=== PATIENT | female | born 1960 | race Caucasian/White ===

== ENCOUNTER 2017-03-02 17:57 | Inpatient (IN) | payer BC ==
[2017-03-02] MEDS ORDERED: METO25TA3 PO (18:50)
[2017-03-02] MEDS ORDERED: LOSA100T3 PO (18:50)
[2017-03-02 20:00] VITALS: BP 102/58; PULSE 80; RESP 22; TEMP 97.6; O2SAT 99
[2017-03-02] MEDS ORDERED: PILL SPLITTER OTHER PRN (20:00)
[2017-03-02] MEDS: D5-NS + KCL 40 MEQ INJ 1,000 ML IV SCH (20:59)
[2017-03-02] MEDS: LEVOFLOXACIN 750 MG PREMIX INJ 150 ML IV SCH (21:00)
[2017-03-02] MEDS: metroNIDAZOLE 500 MG INJ 100 ML IV SCH (21:06)
[2017-03-02] MEDS: MORPHINE SULFATE 4 MG/ML INJ IV PUSH PRN (21:11)
[2017-03-03] VITALS: BP 97/56; PULSE 85; RESP 20; TEMP 98.1; O2SAT 94
[2017-03-03 04:00] VITALS: BP 103/62; PULSE 87; RESP 20; TEMP 98.8; O2SAT 97
[2017-03-03] MEDS: metroNIDAZOLE 500 MG INJ 100 ML IV SCH ×3 (04:55→21:18)
[2017-03-03] MEDS: D5-NS + KCL 40 MEQ INJ 1,000 ML IV SCH ×3 (04:56→21:12)
[2017-03-03 07:18] LABS: AUTOMATED NEUTROPHIL # 11.3 TH/MM3 (1.8-7.7); BASOPHIL % 0.1 % (0.0-2.0); EOSINOPHIL % 0.1 % (0.0-4.0); HEMATOCRIT 34.8 % (35.0-46.0); HEMO FLAGS DIFF FINAL; LYMPHOCYTE # 1.1 TH/MM3 (1.0-4.8); MEAN CELL VOLUME 86.7 FL (80.0-100.0); MEAN CORPUSCULAR HEMOGLOBIN 29.3 PG (27.0-34.0); MEAN CORPUSCULAR HGB CONC 33.8 % (32.0-36.0); MONO % 5.8 % (0.0-8.0); PLATELET COUNT 188 TH/MM3 (150-450); RED BLOOD COUNT 4.02 MIL/MM3 (4.00-5.30); RED CELL DISTRIBUTION WIDTH 13.4 % (11.6-17.2); WHITE BLOOD COUNT 13.1 TH/MM3 (4.0-11.0)
[2017-03-03 07:26] LABS: BICARBONATE 24.9 MEQ/L (21.0-32.0); POTASSIUM 3.7 MEQ/L (3.5-5.1)
[2017-03-03 08:00] VITALS: BP 110/65; PULSE 78; RESP 19; TEMP 97.8; O2SAT 96
[2017-03-03] MEDS: HYDROCHLOROTHIAZIDE 25 MG TAB PO SCH (08:44)
[2017-03-03] MEDS: METOPROLOL TARTRATE 25 MG TAB PO SCH (08:44)
[2017-03-03] MEDS: LOSARTAN 50 MG TAB PO SCH (08:44)
[2017-03-03] MEDS ORDERED: LOSARTAN HYDROCHLOROTHIAZIDE PO SCH (09:00)
--- NOTE | 2017-03-03 09:24 | MH ---
cc: CANDIS ALCANTARA M.D. DATE OF ADMISSION: 03/02/2017 CHIEF COMPLAINT Abdominal pain. HISTORY OF PRESENT ILLNESS The patient is 56-year-old female who underwent colonoscopy yesterday. She had a large polyp removed from her ascending colon and began having some nausea and vomiting shortly after the procedure. This gradually resolved but she continued to have some mild discomfort in her right lower quadrant. CT scan was performed and showed inflammatory changes around the ascending colon just at the site of the polyp removal. She was admitted for IV antibiotics and close observation. Currently she is having no nausea. She did tolerate a half piece of toast earlier today. She has had no fevers or chills. PAST MEDICAL HISTORY Hypertension. PAST SURGICAL HISTORY 1. . 2. Removal of nevus from her upper extremity. ALLERGIES SULFA. MEDICATIONS 1. Metoprolol. 2. Losartan. 3. Vitamin-D. SOCIAL HISTORY The patient denies tobacco. She has occasional alcohol. REVIEW OF SYSTEMS Negative for chills, night sweats, weight loss, blurred vision, chronic cough, dyspnea, chest pain, palpitations, dizziness, fainting, seizures, thyroid problems or anemia. PHYSICAL EXAMINATION GENERAL: An alert female who appears comfortable. NEUROLOGIC: Grossly intact. SKIN: Warm and dry. CARDIOVASCULAR: Regular rate. CHEST: Breathing is symmetric bilaterally and nonlabored. ABDOMEN: Soft, nondistended. She is moderately tender to palpation in the right lower quadrant. EXTREMITIES: No edema. IMPRESSION Abdominal pain and CT changes after polypectomy. PLAN We will admit her for IV antibiotics and close observation. I have discussed with the patient that this usually will resolve on its own, however, if things get worse we may need to proceed with surgery. MD DAFNE Sanchez/TAZ /9:06 AM /9:13 AM STACIA
[2017-03-03 12:00] VITALS: BP 114/65; PULSE 55; RESP 19; TEMP 98.1; O2SAT 96
[2017-03-03] MEDS: MORPHINE SULFATE 4 MG/ML INJ IV PUSH PRN (12:13)
--- NOTE | 2017-03-03 14:52 | HHI.PR ---
Subjective Remarks Ascending colon inflammation after polypectomy More comfortable, some gas pains Objective Vital Signs Date Time Temp Pulse Resp B/P (MAP) Pulse Ox O2 Delivery O2 Flow Rate FiO2 03/03/17 12:00 98.1 55 19 114/65 (81) 96 03/03/17 08:00 97.8 78 19 110/65 (80) 96 03/03/17 04:00 98.8 87 20 103/62 (76) 97 03/03/17 00:00 98.1 85 20 97/56 (70) 94 03/02/17 20:00 97.6 80 22 102/58 (73) 99 I/O 03/02/17 03/02/17 03/02/17 03/03/17 03/03/17 03/03/17 07:00 15:00 23:00 07:00 15:00 23:00 Intake Total 250 ml 1000 ml 100 ml Output Total 425 ml Balance 250 ml 575 ml 100 ml Intake Oral 0 ml 0 ml IV Total 250 ml 1000 ml 100 ml Output Urine Total 425 ml # Bowel Movements 0 Result Diagram: 03/03/17 0613 03/03/17612 Objective Remarks Abdomen soft, nondistended, less tender Assessment and Plan Assessment and Plan Continue bowel rest, antibiotics Dulce Christianson MD Mar 03, 2017 14:52
[2017-03-03 16:00] VITALS: BP 122/74; PULSE 78; RESP 19; TEMP 97.6; O2SAT 95
[2017-03-03 20:00] VITALS: BP 128/78; PULSE 81; RESP 16; TEMP 97.5; O2SAT 94
[2017-03-03] MEDS: LEVOFLOXACIN 750 MG PREMIX INJ 150 ML IV SCH (21:12)
[2017-03-04] MEDS: metroNIDAZOLE 500 MG INJ 100 ML IV SCH ×3 (03:54→21:32)
[2017-03-04 04:00] VITALS: BP 143/80; PULSE 86; RESP 16; TEMP 97.3; O2SAT 84; O2SAT 94
[2017-03-04 08:00] VITALS: BP 138/88; PULSE 77; RESP 16; TEMP 98; O2SAT 95
[2017-03-04] MEDS: METOPROLOL TARTRATE 25 MG TAB PO SCH (09:09)
[2017-03-04] MEDS: LOSARTAN 50 MG TAB PO SCH (09:09)
[2017-03-04] MEDS: HYDROCHLOROTHIAZIDE 25 MG TAB PO SCH (09:09)
[2017-03-04] MEDS: D5-NS + KCL 40 MEQ INJ 1,000 ML IV SCH ×3 (09:09→12:23)
--- NOTE | 2017-03-04 10:34 | HHI.PR ---
Subjective Remarks Ascending colon inflammation after polypectomy comfortable, some loose stools with antibiotics Objective Vital Signs Date Time Temp Pulse Resp B/P (MAP) Pulse Ox O2 Delivery O2 Flow Rate FiO2 03/04/17 08:00 98.0 77 16 138/88 (105) 95 03/04/17 08:00 98.0 77 16 138/88 (105) 95 03/04/17 04:00 97.3 86 16 143/80 (101) 94 03/03/17 20:00 97.5 81 16 128/78 (95) 94 03/03/17 16:00 97.6 78 19 122/74 (90) 95 03/03/17 12:00 98.1 55 19 114/65 (81) 96 I/O 03/03/17 03/03/17 03/03/17 03/04/17 03/04/17 03/04/17 07:00 15:00 23:00 07:00 15:00 23:00 Intake Total 1000 ml 100 ml 1136 ml 100 ml Output Total 425 ml 400 ml Balance 575 ml 100 ml 736 ml 100 ml Intake Oral 0 ml 0 ml 0 ml 0 ml IV Total 1000 ml 100 ml 1136 ml 100 ml Output Urine Total 425 ml 400 ml # Voids 3 # Bowel Movements 0 0 1 Result Diagram: 03/03/1761203/03/17612 Objective Remarks minimally tender Assessment and Plan Assessment and Plan Continue antibiotics Try diet Dulce Christianson MD Mar 04, 2017 10:34
[2017-03-04 12:00] VITALS: BP 132/65; PULSE 68; RESP 16; TEMP 96.4; O2SAT 98
[2017-03-04 16:00] VITALS: BP 162/90; PULSE 72; RESP 19; TEMP 96.8; O2SAT 99
[2017-03-04 20:00] VITALS: BP 127/81; PULSE 80; RESP 18; TEMP 98.1; O2SAT 98
[2017-03-04] MEDS: LEVOFLOXACIN 750 MG PREMIX INJ 150 ML IV SCH (21:33)
[2017-03-05] VITALS: BP 133/80; PULSE 83; RESP 18; TEMP 97.4; O2SAT 97
[2017-03-05] MEDS: metroNIDAZOLE 500 MG INJ 100 ML IV SCH ×2 (04:32→12:12)
[2017-03-05 08:00] VITALS: BP 127/61; PULSE 75; RESP 16; TEMP 97.9; O2SAT 97
--- NOTE | 2017-03-05 08:58 | HHI.PR ---
Subjective Remarks Ascending colon inflammation after polypectomy comfortable, tolerated diet Objective Vital Signs Date Time Temp Pulse Resp B/P (MAP) Pulse Ox O2 Delivery O2 Flow Rate FiO2 03/05/17 08:00 97.9 75 16 127/61 (83) 97 03/05/17 00:00 97.4 83 18 133/80 (97) 97 03/04/17 20:00 98.1 80 18 127/81 (96) 98 03/04/17 16:00 96.8 72 19 162/90 (114) 99 03/04/17 12:00 96.4 68 16 132/65 (87) 98 I/O 03/04/17 03/04/17 03/04/17 03/05/17 03/05/17 03/05/17 07:00 15:00 23:00 07:00 15:00 23:00 Intake Total 100 ml 700 ml 150 ml Output Total 900 ml Balance 100 ml -200 ml 150 ml Intake Oral 0 ml 600 ml IV Total 100 ml 100 ml 150 ml Output Urine Total 900 ml # Voids 3 # Bowel Movements 1 2 Result Diagram: 03/03/1713 03/03/17612 Objective Remarks minimally tender Assessment and Plan Assessment and Plan Home today with antibiotics Dulce Christianson MD Mar 05, 2017 08:58
[2017-03-05] MEDS ORDERED: FLAG375C PO (09:01)
[2017-03-05] MEDS ORDERED: CIPR500T2 PO (09:01)
[2017-03-05] MEDS: LOSARTAN 50 MG TAB PO SCH (10:56)
[2017-03-05] MEDS: METOPROLOL TARTRATE 25 MG TAB PO SCH (10:57)
[2017-03-05] MEDS: HYDROCHLOROTHIAZIDE 25 MG TAB PO SCH (10:57)
[2017-03-05 11:32] LABS: AUTOMATED NEUTROPHIL # 6.8 TH/MM3 (1.8-7.7); BASOPHIL % 0.2 % (0.0-2.0); EOSINOPHIL # 0.1 TH/MM3 (0-0.4); EOSINOPHIL % 0.9 % (0.0-4.0); HEMATOCRIT 39.7 % (35.0-46.0); HEMO FLAGS DIFF FINAL; LYMPH % 16.5 % (9.0-44.0); LYMPHOCYTE # 1.5 TH/MM3 (1.0-4.8); MEAN CELL VOLUME 88.1 FL (80.0-100.0); MEAN CORPUSCULAR HGB CONC 32.9 % (32.0-36.0); MONO % 7.4 % (0.0-8.0); PLATELET COUNT 249 TH/MM3 (150-450); RED BLOOD COUNT 4.51 MIL/MM3 (4.00-5.30); RED CELL DISTRIBUTION WIDTH 13.2 % (11.6-17.2); WHITE BLOOD COUNT 9.1 TH/MM3 (4.0-11.0)
[2017-03-05 12:00] VITALS: BP 131/82; PULSE 66; RESP 16; TEMP 96; O2SAT 99
--- NOTE | 2017-03-06 23:03 | MD ---
cc: CANDIS ALCANTARA M.D. ADMISSION DATE: 03/02/2017 DISCHARGE DATE: 03/05/2017 ADMISSION DIAGNOSIS Abdominal pain. DISCHARGE DIAGNOSIS Abdominal pain. Abnormal CT Scan. PROCEDURES None HOSPITAL COURSE The patient is a 56-year-old female who underwent colonoscopy the day prior to admission. She had a large polyp removed from her ascending colon and began having pain and CT scan showed inflammatory changes at the site of the polyp removal. She was admitted to the hospital for bowel rest and IV antibiotics. Her diet was gradually advanced. At the time of discharge, she had minimal tenderness. She instructed to follow-up with myself in the office. MD DAFNE Sanchez/ /8:59 AM /10:51 PM MTDD
== END 2017-03-05 14:09 | disposition home or self-care (01) | DRG 392 ==
LOC: N07B 18:00
PROVIDERS: ADMIT Colon & Rectal Surgery; ATTEND Colon & Rectal Surgery
DX: K52.89 Other specified noninfective gastroenteritis and colitis (principal); I10 Essential (primary) hypertension; R10.9 Unspecified abdominal pain; Z98.890 Other specified postprocedural states; Z86.010 Personal history of colon polyps
CPT/HCPCS: 80048; 85025; J1956; J2270; J3480